=== PATIENT | female | born 1995 | race Asian ===

== ENCOUNTER 2018-09-11 19:55 | Emergency (ER) | payer OTHER ==
[2018-09-11 20:33] LABS: BASOPHILS % (AUTO) 0.5 %; EOSINOPHILS # (AUTO) 0.1 10^3/uL (0.0-0.7); EOSINOPHILS % (AUTO) 1.3 %; HGB - HEMOGLOBIN 12.6 g/dL (12.0-16.0); LYMPHOCYTES # (AUTO) 2.2 10^3/uL (1.5-3.5); LYMPHOCYTES % (AUTO) 30.8 %; MEAN CORPUSCULAR HEMOGLOBIN 31.3 pg (27.0-31.0); MEAN CORPUSCULAR VOLUME 89.4 fL (81.0-99.0); MEAN PLATELET VOLUME 7.6 fL (7.9-10.8); MONOCYTES # (AUTO) 0.5 10^3/uL (0.0-1.0); MONOCYTES % (AUTO) 7.8 %; NEUTROPHILS # (AUTO) 4.2 10^3/uL (1.5-6.6); NEUTROPHILS % (AUTO) 59.6 %; PLT - PLATELET COUNT 271 10^3/uL (130-450); RED BLOOD COUNT 4.02 10^6/uL (4.20-5.40); RED CELL DISTRIBUTION WIDTH 13.3 % (12.0-15.0)
--- NOTE | 2018-09-11 20:36 | ED Physician Documentation ---
PD HPI FEMALE - Stated complaint Stated Complaint: FEMALE /9 WEEKS PREG - Chief complaint Chief Complaint: Abd Pain - History obtained from History obtained from: Patient, Family - History of Present Illness Timing - onset: Yesterday Timing - duration: Days (1) Timing - details: Gradual onset Pain level max: 1 Pain level max: 1 Associated symptoms: Vaginal pain (spotting yesterday, heavier today) Contributing factors: OB-GROUNDS/MAINTENANCE SPECIALIST History: G (1), P (0) Similar symptoms before: Has not had sx before Recently seen: Clinic (seen in OB clinic today) - Additional information Additional information: Patient is a 23-year-old female who presents to the emergency department with vaginal bleeding since yesterday. This is her first . Spotting yesterday, heavier today. No clots or tissue Review of Systems Constitutional: denies: Fever, Chills GI: denies: Vomiting, Diarrhea : reports: Now EGA (They believe she is approximately 9 weeks ). denies: Dysuria, Frequency, Hesitancy Skin: denies: Rash Musculoskeletal: denies: Neck pain, Back pain Neurologic: denies: Headache PD PAST MEDICAL HISTORY - Past Medical History Past Medical History: No - Past Surgical History Past Surgical History: No - Present Medications Home Medications: Ambulatory Orders Medication Instructions Recorded Confirmed Vits96/Iron Fum/Folic 1 tab PO DAILY 09/11/18 09/11/18 [ Tablet] - Allergies Allergies/Adverse Reactions: Allergies Allergy/AdvReac Type Severity Reaction Status Date / Time No Known Drug Allergies Allergy Verified 09/11/18 20:12 - Social History Does the pt smoke?: No Smoking Status: Never smoker Does the pt drink ETOH?: No Does the pt have substance abuse?: No - Immunizations Immunizations are current?: Yes - POLST Patient has POLST: No PD ED PE NORMAL - Vitals Vital signs reviewed: Yes - General General: Alert and oriented X 3, No acute distress - HEENT HEENT: Moist mucous membranes - Neck Neck: Supple, no meningeal sign - Cardiac Cardiac: RRR - Respiratory Respiratory: No respiratory distress, Clear bilaterally - Abdomen Abdomen: Soft, Non tender, Non distended - Female Female : Pt declined - Back Back: No spinal TTP - Derm Derm: Warm and dry - Neuro Neuro: Alert and oriented X 3 Results - Vitals Vitals: Vital Signs - 24 hr 10/31/18 10/31/18 20:00 21:49 Temperature 37.0 C Heart Rate 62 70 Respiratory 16 16 Rate Blood Pressure 110/69 104/63 O2 Saturation 100 100 Oxygen O2 Source Room air - Labs Labs: Laboratory Tests 09/11/18 09/11/18 09/11/18 20:22 20:22 20:22 WBC 7.0 RBC 4.02 L Hgb 12.6 Hct 35.9 L MCV 89.4 MCH 31.3 H MCHC 35.0 RDW 13.3 Plt Count 271 MPV 7.6 L Neut # (Auto) 4.2 Lymph # (Auto) 2.2 [place] # (Auto) 0.5 Eos # (Auto) 0.1 Baso # (Auto) 0.0 Absolute Nucleated RBC 0.00 Nucleated RBC % 0.0 Sodium 138 Potassium 3.6 Chloride 103 Carbon Dioxide 25 Anion Gap 10.0 BUN 14 Creatinine 0.6 Estimated GFR (MDRD) 122 Glucose 131 H Calcium 8.6 Total Bilirubin 0.5 AST 15 ALT 13 Alkaline Phosphatase 44 Total Protein 6.3 L Albumin 3.8 Globulin 2.5 Albumin/Globulin Ratio 1.5 Lipase 32 HCG, Quant Urine Color Urine Clarity Urine pH Ur Specific [place] Urine Protein Urine Glucose (UA) Urine Ketones Urine Occult Blood Urine Nitrite Urine Bilirubin Urine Urobilinogen Ur Leukocyte Esterase Ur Microscopic Review Urine Culture Comments Blood Type O POSITIVE 09/11/18 09/11/18 20:22 20:44 WBC RBC Hgb Hct MCV MCH MCHC RDW Plt Count MPV Neut # (Auto) Lymph # (Auto) [place] # (Auto) Eos # (Auto) Baso # (Auto) Absolute Nucleated RBC Nucleated RBC % Sodium Potassium Chloride Carbon Dioxide Anion Gap BUN Creatinine Estimated GFR (MDRD) Glucose Calcium Total Bilirubin AST ALT Alkaline Phosphatase Total Protein Albumin Globulin Albumin/Globulin Ratio Lipase HCG, Quant 5158.00 Urine Color YELLOW Urine Clarity CLEAR Urine pH 7.0 Ur Specific [place] 1.020 Urine Protein NEGATIVE Urine Glucose (UA) NEGATIVE Urine Ketones NEGATIVE Urine Occult Blood NEGATIVE Urine Nitrite NEGATIVE Urine Bilirubin NEGATIVE Urine Urobilinogen 0.2 (NORMAL) Ur Leukocyte Esterase NEGATIVE Ur Microscopic Review NOT INDICATED Urine Culture Comments NOT INDICATED Blood Type PD MEDICAL DECISION MAKING - ED course Complexity details: reviewed results, re-evaluated patient, considered differential, d/w patient, d/w family ED course: 23-year-old female, 1 para 0 who presents with vaginal bleeding. Bedside ultrasound reveals an intrauterine with a gestational sac of 6 weeks 3 days and a crown rump length of 6 weeks 5 days. heart rate of 133 bpm. HCG is just over 5000. We will have her follow-up with her doctor for repeat hCG and further care. Blood type is O+. Patient and family counseled regarding signs and symptoms for which I believe and urgent re-evaluation would be necessary. Patient with good understanding of and agreement to plan and is comfortable going home at this time This document was made in part using voice recognition software. While efforts are made to proofread this document, sound alike and grammatical errors may occur. Departure - Departure Disposition: 01 Home, Self Care Clinical Impression: Threatened affecting intrauterine Condition: Good Instructions: ED Miscarriage Poss Follow-Up: your,doctor in 3 days for repeat HCG [Other] Comments: You should follow-up with your doctor in 3 days for repeat hCG. Return if you worsen. Your HCG is 5000 today Discharge Date/Time: 09/11/18 21:49
[2018-09-11 20:51] LABS: BILIRUBIN,URINE NEGATIVE (NEGATIVE); GLUCOSE, URINE (UA) NEGATIVE (NEGATIVE); KETONES,URINE (UA) NEGATIVE (NEGATIVE); LEUKOCYTE ESTERASE, URINE NEGATIVE (NEGATIVE); NITRITE,URINE NEGATIVE (NEGATIVE); OCCULT BLOOD,URINE NEGATIVE (NEGATIVE); PROTEIN,URINE NEGATIVE (NEGATIVE); UROBILINOGEN,URINE 0.2 (NORMAL) E.U./dL (NORMAL)
[2018-09-11 20:56] LABS: ALBUMIN 3.8 g/dL (3.2-5.5); ALBUMIN/GLOBULIN RATIO 1.5 (1.0-2.2); BILIRUBIN,TOTAL 0.5 mg/dL (0.2-1.0); CALCIUM 8.6 mg/dL (8.5-10.3); CREATININE 0.6 mg/dL (0.4-1.0); TOTAL PROTEIN 6.3 g/dL (6.7-8.2)
[2018-09-11 20:57] LABS: CLARITY,URINE CLEAR (CLEAR)
[2018-09-11 21:49] VITALS: BP 104/63
== END 2018-09-11 21:49 | disposition home or self-care (01) ==
LOC: ED 19:55
DX: O20.0 Threatened abortion (principal); Z3A.01 Less than 8 weeks gestation of pregnancy
CPT/HCPCS: 36415; 80053; 81001; 81003; 83690; 84702; 85025; 86900; 86901; 87086; 99283

== ENCOUNTER 2018-09-13 22:12 | Emergency (ER) | payer OTHER ==
--- NOTE | 2018-09-13 22:47 | ED Physician Documentation ---
PD HPI FEMALE - Stated complaint Stated Complaint: 9WKS PREG/BLEEDING/ABD PX - Chief complaint Chief Complaint: Abd Pain - History obtained from History obtained from: Patient, Family (spouse) - History of Present Illness Timing - onset: How many days ago (4) Timing - details: Gradual onset Associated symptoms: Pelvic pain, Vaginal bleeding. No: Fever Contributing factors: OB-FEED RESEARCH AIDE History: G (1), P (0) Recently seen: Emergency Dept - Additional information Additional information: T+R 2 days ago for vaginal bleeding x 4 days. at that time, patient and believed she was 9 weeks , although bedside US c/w 6 weeks 4 days (130s heart rate). She returns at this time for increasing vaginal bleeding and, beginning at 9:30 PM tonight, episodic suprapubic cramping that has gradually worsened in frequency and intensity Review of Systems Constitutional: denies: Fever, Chills, Sweats GI: denies: Abdominal Pain, Nausea, Vomiting : reports: Vaginal bleeding, Now EGA. denies: Dysuria, Frequency PD PAST MEDICAL HISTORY - Past Medical History Past Medical History: No - Past Surgical History Past Surgical History: No - Present Medications Home Medications: Ambulatory Orders Medication Instructions Recorded Confirmed Vits96/Iron Fum/Folic 1 tab PO DAILY 09/11/18 09/11/18 [ Tablet] - Allergies Allergies/Adverse Reactions: Allergies Allergy/AdvReac Type Severity Reaction Status Date / Time No Known Drug Allergies Allergy Verified 09/11/18 20:12 - Living Situation Living Situation: reports: With spouse/s.o. Living Arrangement: reports: At home - Social History Does the pt smoke?: No Smoking Status: Never smoker Does the pt drink ETOH?: No Does the pt have substance abuse?: No - Immunizations Immunizations are current?: Yes - POLST Patient has POLST: No PD ED PE NORMAL - Vitals Vital signs reviewed: Yes - General General: Alert and oriented X 3, Well developed/nourished, Other (appears to be in mild waxing and waning painful distress during H+P) - Cardiac Cardiac: RRR, No murmur - Respiratory Respiratory: No respiratory distress, Clear bilaterally - Abdomen Abdomen: Soft, Non tender - Derm Derm: Normal color, Warm and dry Results - Vitals Vitals: Oxygen O2 Source Room air - Labs Labs: Laboratory Tests 09/13/18 09/13/18 09/13/18 22:43 22:43 22:43 Hgb 12.2 Hct 36.5 L Serum HCG, Qual Cancelled HCG, Quant 4989.00 - Rads (name of study) pelvic US Radiology: Prelim report reviewed, See rad report PD MEDICAL DECISION MAKING - ED course Complexity details: reviewed old records, reviewed results, re-evaluated patient, considered differential, d/w patient, d/w family ED course: patient only speaks [place]ian, but is able to translate. After results of blood test returned, these were d/w patient and . Small drop in h/h; more concerning is decreased HCG (compared to 2 days ago). asks about progesterone, saying that it is commonly used in [place] to prevent miscarriage. I do not see indication for this in the literature, but he asks that it be given. I d/w Dr. Hernandez (on-call door to door selling agent) and she agrees that this medication is not indicated at this time. She mentions that sometimes a progesterone level is checked as a means of giving more information regarding likelihood of viability of , but agrees that the result, while possibly offering prognostic information, would not change emergent management. I discussed this with , who requests progesterone level draw. then requests repeat US; I was not able to adequately image with bedside US, and thus I ordered US, results of which show no heart tones and tissue in cervix. This result was d/w patient and . I offered to perform a pelvic exam, as I would be able to remove any visualized tissue; however, considering her bleeding has been minimal during ED stay, and the likelihood the products of conception will pass on their own, pelvic exam is not a necessity. Patient and decline pelvic exam. she requests something to control the pain, and vicodin was given. Discharged home, instructed to f/u with door to door selling agent but return if worsening in any way. Departure - Departure Disposition: 01 Home, Self Care Clinical Impression: demise Condition: Good Instructions: ED Miscarriage Inevitable Follow-Up: [facility] Alberto [Provider Group] Arlette Hernandez DO [Provider Admit Priv/Credential] - Discharge Date/Time: 09/14/18 03:53
[2018-09-13 22:48] LABS: HGB - HEMOGLOBIN 12.2 g/dL (12.0-16.0)
[2018-09-14 03:00] VITALS: BP 103/50
--- NOTE | 2018-09-14 03:09 | Ultrasound Report ---
Reason: , vaginal bleeding and crampin Procedure Date: 09/14/2018 Accession Number: [id number] / [id number] Procedure: US - OB First Trimester CPT Code: FULL RESULT: EXAM: FIRST TRIMESTER OBSTETRIC ULTRASOUND (Less than 11 weeks) EXAM DATE: 09/14/2018 02:50 AM. CLINICAL HISTORY: , vaginal bleeding and cramping. COMPARISONS: None. TECHNIQUE: Transabdominal and transvaginal ultrasound examination with static image documentation. FINDINGS: Gestational Sac: An intrauterine fluid-filled sac contains both an embryo and yolk sac, sac located in the lower uterine segment/cervix. Moderate amount of perigestational bleed within the endometrial canal. Embryo: CRL (crown-rump length) measures 9 mm corresponding to an estimated gestational age of 6 weeks 6 days. Heart Rate: 0 beats per minute. Placenta: Not visible at this gestational age. Amniotic fluid: Not accurately assessed at this gestational age. Uterus: Unremarkable anteverted appearance. Cervix: Closed. Right Ovary: Volume 10 cc. Normal echotexture and blood flow. Left Ovary: Volume 8 cc. Normal echotexture and blood flow. Free Fluid: None. Other: None. IMPRESSION: in progress. Gestational sac with an approximately 6 week 6 day embryo without heart beat in the lower uterine segment/cervix. Clinical followup suggested. Discussed with Dr Gonzalez. HEIDI
[2018-09-14] MEDS ORDERED: HYDROcod/ACETAM 5/325 MG TABLET PO STA (03:27)
[2018-09-14] MEDS ORDERED: HYDROcod/ACET 5/325 Prepack 4 PO STA (03:27)
== END 2018-09-14 03:53 | disposition home or self-care (01) ==
LOC: ED 22:12
DX: O02.1 Missed abortion (principal)
CPT/HCPCS: 36415; 76801; 76817; 84144; 84702; 85014; 85018; 99283; A9270; 84703

== ENCOUNTER 2019-01-13 23:08 | Emergency (ER) | payer OTHER ==
[2019-01-13 23:21] VITALS: BP 104/58
--- NOTE | 2019-01-13 23:36 | ED Physician Documentation ---
PD HPI UPPER EXT INJURY - Stated complaint Stated Complaint: CAT SCRATCH - Chief complaint Chief Complaint: General - History obtained from History obtained from: Patient, Family (spouse) - History of Present Illness Location: Left (eyelid) Type of injury: Other (scratched by cat) Where injury occurred: Home Timing - onset: How many minutes ago (45) Similar symptoms before: Has not had sx before - Additonal information Additional information: approximately 45 minutes prior to presentation, patient sustained a scratch to her left upper eyelid from a recently adopted a kitten. She has documentation with her from the facility where she adopted the kitten, and this documentation includes information indicating the cat is up-to-date on immunizations including rabies vaccination. Review of Systems Eyes: reports: Reviewed and negative PD PAST MEDICAL HISTORY - Past Medical History Past Medical History: No Cardiovascular: None Respiratory: None Neuro: None Endocrine/Autoimmune: None GI: None PATTERNATOR: None : None HEENT: None Psych: None Musculoskeletal: None Derm: None - Past Surgical History Past Surgical History: No - Present Medications Home Medications: Ambulatory Orders Medication Instructions Recorded Confirmed Vits96/Iron Fum/Folic 1 tab PO DAILY 09/11/18 09/11/18 [ Tablet] - Allergies Allergies/Adverse Reactions: Allergies Allergy/AdvReac Type Severity Reaction Status Date / Time No Known Drug Allergies Allergy Verified 01/13/19 23:18 - Social History Does the pt smoke?: Yes Smoking Status: Current every day smoker Does the pt drink ETOH?: No Does the pt have substance abuse?: No - Immunizations Immunizations are current?: Yes - POLST Patient has POLST: No PD ED PE NORMAL - Vitals Vital signs reviewed: Yes - General General: Alert and oriented X 3, No acute distress, Well developed/nourished - HEENT HEENT: PERRL, EOMI PD ED PE EXPANDED - HEENT HEENT Visual: 1 - abrasion (1 cm linear superficial abrasion) Results - Vitals Vitals: Oxygen O2 Source Room air PD MEDICAL DECISION MAKING - ED course Complexity details: considered differential, d/w patient Departure - Departure Disposition: 01 Home, Self Care Clinical Impression: Abrasion of eyelid, left, Cat scratch Condition: Good Instructions: ED Abrasion Discharge Date/Time: 01/14/19 00:10
== END 2019-01-14 00:10 | disposition home or self-care (01) ==
LOC: ED 23:08
DX: S00.212A Abrasion of left eyelid and periocular area, initial encounter (principal); W55.03XA Scratched by cat, initial encounter; Y92.009 Unspecified place in unspecified non-institutional (private) residence as the place of occurrence of the external cause; F17.200 Nicotine dependence, unspecified, uncomplicated
CPT/HCPCS: 99282; 99283